=== PATIENT | male | born 1985 | race Caucasian/White ===

== ENCOUNTER 2019-07-17 15:49 | Emergency (ER) | payer SELFPAY ==
[2019-07-17 17:05] VITALS: BP 150/96; PULSE 100; RESP 18; TEMP 36.6; O2SAT 97; BMI 27.2
--- NOTE | 2019-07-17 17:12 | PC.NURSE ---
Ice pack given to pt for face pain
== END 2019-07-17 18:58 | disposition left against medical advice (07) ==
PROVIDERS: Emergency Provider Nurse Practitioner Family; Family Provider Nurse Practitioner; PCP Nurse Practitioner
DX: Z53.21 Procedure and treatment not carried out due to patient leaving prior to being seen by health care provider (principal)
CPT/HCPCS: 99281

== ENCOUNTER → 2019-10-02 08:50 | Outpatient (BNVA) | payer BC, SELFPAY | PROVIDERS: Family Provider Nurse Practitioner; PCP Nurse Practitioner; Visit Provider Psychiatry & Neurology Psychiatry | DX: F33.2 Major depressive disorder, recurrent severe without psychotic features (principal); F10.20 Alcohol dependence, uncomplicated | CPT/HCPCS: 99213 ==

== ENCOUNTER 2019-12-17 12:38 | Emergency (ER) | payer SELFPAY ==
[2019-12-17 12:42] VITALS: BP 161/103; PULSE 77; RESP 18; TEMP 37; O2SAT 97; BMI 27.5
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
[2019-12-17] MEDS: ketorolac 60 mg/2 mL INJ IM (13:30)
[2019-12-17 13:35] VITALS: BP 131/96; PULSE 82; RESP 18; O2SAT 97
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
--- NOTE | 2019-12-19 09:28 | DCPLANNER ---
Patient has a follow up appointment scheduled for Tuesday, December 24, 2019 at 10:[address] Mae. Clinic will call patient with appointment information.
--- NOTE | 2019-12-27 15:01 | DCPLANNER ---
Patient did not attend appointment scheduled for 12.24.19 with ortho.
== END 2019-12-17 13:35 | disposition home or self-care (01) ==
PROVIDERS: Emergency Provider Family Medicine; PCP Nurse Practitioner
DX: S43.402A Unspecified sprain of left shoulder joint, initial encounter (principal); X50.9XXA Other and unspecified overexertion or strenuous movements or postures, initial encounter; F17.210 Nicotine dependence, cigarettes, uncomplicated
CPT/HCPCS: 12345; 73030; 96372; 99281; 99283; J1885

== ENCOUNTER 2022-01-18 19:49 | Emergency (ER) | payer SELFPAY ==
[2022-01-18 19:49] VITALS: BMI 28.1
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
--- NOTE | 2022-01-18 19:56 | XRR_ITS ---
PROCEDURE INFORMATION: Exam: XR Chest Exam date and time: 01/18/2022 8:15 PM Age: 36 years old Clinical indication: Other: ETOH; Additional info: AMS TECHNIQUE: Imaging protocol: Radiologic exam of the chest. Views: 1 view. COMPARISON: CR Chest 1 [place] [id number] 06/01/2019 1:33 PM FINDINGS: Lungs: Unremarkable. No consolidation. Pleural spaces: Unremarkable. No pleural effusion. No pneumothorax. Heart/Mediastinum: Cardiomegaly. Bones/joints: Unremarkable. XR/XR chest 1V portable [id number] IMPRESSION: Cardiomegaly, lungs are clear
--- NOTE | 2022-01-18 20:00 | PC.NURSE ---
Dr Siddiqui made aware that pt had not been administered Narcan enroute. Nurse questioned need for narcan administration. No new orders received.
[2022-01-18 20:03] VITALS: BP 153/90; PULSE 107; RESP 17; TEMP 37.4; O2SAT 88
--- NOTE | 2022-01-18 20:07 | ECG_ITS ---
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 Measurements Intervals [place] Rate: 103 P: 52 WY: 147 QRS: 31 QRSD: 90 T: 37 QT: 319 QTc: 419 Interpretive Statements SINUS TACHYCARDIA ABNORMAL RHYTHM ECG Compared to ECG 06/01/2019 13:53:26 Sinus rhythm no longer present Electronically Signed On 01-18-2022 21:18:41 CDT by Woo Forbes M.D. [id number]
[2022-01-18] MEDS: sodium chloride 0.9% 1,000 ML 999 ML IV (20:15)
--- NOTE | 2022-01-18 20:15 | PC.NURSE ---
Pt placed on portable monitor for transport to CT. VO from Dr Sididqui to take the patient to room 10 for intubation prior to CT. Nurse requested narcan administration prior to intubation. No new orders for narcan given.
[2022-01-18 20:18] LABS: Add Urine Microscopic? NO; Charge for UA Resulting for Rev
[2022-01-18 20:20] LABS: Blood Urine Neg (Negative); Glucose Urine UA Norm (Normal); Ketones Urine Negative (Negative); Protein Urine Neg (Negative); Specific Gravity, Urine 1.015 (1.005-1.030); Urine Appearance Clear (CLEAR); Urine Color Yellow (Yellow); pH Urine 6 (5-7)
[2022-01-18 20:21] LABS: Bilirubin Urine Neg (Negative); Leukocyte Esterase Urine Negative (Negative); Nitrate Urine Negative (Negative); Urobilinogen Urine Norm (Negative)
[2022-01-18 20:22] VITALS: BP 121/53; PULSE 103; RESP 17; O2SAT 96
[2022-01-18 20:22] LABS: Basophils % 0.6 %; Eosinophils # 0.2 10^3/uL (0.0-0.8); Eosinophils % 3.5 %; Hematocrit 48.6 % (42.0-52.0); Hemoglobin 15.8 g/dL (11.7-16.6); Mean Corpuscular HGB Conc 32.5 g/dL (30.0-36.0); Mean Corpuscular Hemoglobin 28.4 pg (28.0-34.0); Mean Corpuscular Volume 87.4 fl (80-94); Mean Platelet Volume 8.8 fL (7.4-10.4); Monocytes # 0.4 10^3/uL (0.2-0.9); Monocytes % 6.6 %; Neutrophils # 3.76 10^3/uL (1.8-7.7); Neutrophils % 57.7 %; Nucleated Red Blood Cells % 0 %; Platelet Count 294 10^3/cmm (130-400); Red Blood Count 5.56 10^6/uL (4.1-5.3); Red Cell Distribution Width 13.3 % (12.1-15.1); White Blood Count 6.5 10^3/uL (4.0-10.0)
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
[2022-01-18] MEDS: naloxone 0.4 mg/ml SDV (20:25)
--- NOTE | 2022-01-18 20:25 | PC.NURSE ---
Arrived to room with RN x 3, RT, Dr. Siddiqui. Pt is responsive to sternal rub. Nasal trumpet to left nare per Dr. Siddiqui. VSS. Request to intubate by MD. Began setting up while special agent in charge requested Narcan prior to intubation. 0.4 of mg Narcan given. At approx 2026 pt began to gag. Pt was sat up in bed, mouth suctioned. Approx 2029, pt was awake with a GCS of 15. Answering questions appropriately. Pt to CT accompanied by RN x 2. Remained cooperative. On return to room, wen was dc'd at pt request. Family at bedside.
[2022-01-18 20:30] LABS: Amphetamines Screen Urine Negative (Negative); Barbiturates Screen Urine Negative (Negative); Benzodiazepines Screen Urine Negative (Negative); Cocaine Screen Urine Negative (Negative); Opiate Screen Urine Negative (Negative); PCP Screen Urine Negative (Negative); THC Screen Urine Negative (Negative)
[2022-01-18 20:50] LABS: Troponin(5th) Baseline 7 ng/L (0-15)
[2022-01-18 20:55] LABS: Alanine Aminotransferase 23 U/L (0-41); Albumin Level 4.5 g/dL (3.5-5.2); Alcohol Level 185 mg/dL (0-10); Alkaline Phosphatase 72 IU/L (40-130); Anion Gap 16.1 (5-19); Aspartate Amino Transferase 22 U/L (0-40); Blood Urea Nitrogen 11 mg/dL (6-20); Carbon Dioxide 25 mmol/L (22-29); Chloride 111 mmol/L (98-107); Globulin 2.3 g/dL (1.3-4.6); Glomerular Filtration Rate 62.8 mL/min (90-130); Glucose 102 mg/dL (65-115); Lipase 27 U/L (13-60); Osmolality Calculated 306 mOsm/kg (285-295); Potassium 4.1 mmol/L (3.5-5.1); Sodium 148 mmol/L (136-145); Total Bilirubin 0.2 mg/dL (0.15-1.2); Total Protein 6.8 g/dL (6.6-8.7)
[2022-01-18 21:02] LABS: Acetaminophen < 5.0 ug/mL (10-30); Salicylate < 0.3 mg/dL (3-10)
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
--- NOTE | 2022-01-18 21:56 | ECG_ITS ---
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 Measurements Intervals [place] Rate: 106 P: 58 RI: 147 QRS: 48 QRSD: 89 T: 43 QT: 320 QTc: 426 Interpretive Statements SINUS TACHYCARDIA ABNORMAL RHYTHM ECG Compared to ECG 01/18/2022 20:07:00 No significant changes Electronically Signed On 01-19-2022 19:51:37 CDT by Marina Harris M.D. [id number] f
== END 2022-01-18 21:58 | disposition home or self-care (01) ==
PROVIDERS: Emergency Provider Emergency Medicine
DX: R41.82 Altered mental status, unspecified (principal); F10.129 Alcohol abuse with intoxication, unspecified; Y90.6 Blood alcohol level of 120-199 mg/100 ml; F17.210 Nicotine dependence, cigarettes, uncomplicated
CPT/HCPCS: 51702; 70450; 71045; 72125; 80053; 80306; 80307; 81003; 83690; 84439; 84443; 84484; 85025; 93005; 96361; 96374; 99285; J2310; J7030

== ENCOUNTER 2022-03-19 16:09 | Emergency (ER) | payer MEDICAID, SELFPAY ==
[2022-03-19 16:17] VITALS: BP 140/86; PULSE 90; RESP 18; TEMP 36.2; O2SAT 97
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
[2022-03-19 18:22] VITALS: BP 147/93; PULSE 73; RESP 15; TEMP 36.7; O2SAT 98
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
== END 2022-03-19 18:25 | disposition home or self-care (01) ==
PROVIDERS: Emergency Provider Nurse Practitioner Family
DX: S93.401A Sprain of unspecified ligament of right ankle, initial encounter (principal); B99.9 Unspecified infectious disease; S90.31XA Contusion of right foot, initial encounter; F17.210 Nicotine dependence, cigarettes, uncomplicated; V86.99XA Unspecified occupant of other special all-terrain or other off-road motor vehicle injured in nontraffic accident, initial encounter
CPT/HCPCS: 73610; 73630; 99283; E0114

== ENCOUNTER 2023-01-13 06:11 | Emergency (ER) | payer BC, MEDICAID, SELFPAY ==
[2023-01-13 06:31] VITALS: BP 145/95; PULSE 66; RESP 20; TEMP 36.6; O2SAT 97; BMI 28.7
--- NOTE | 2023-01-13 06:46 | W.ED.BACK ---
HPI - Back Pain/Injury General: Chief Complaint: Back Pain/Injury Stated Complaint: upper back pain Time Seen by Provider: 01/13/23 06:14 Source: patient Mode of arrival: ambulatory History of Present Illness: 37-year-old male presents emergency room with complaints of upper back pain. He was doing some north work and heavy lifting feels like he hurt his upper back. MD elicited complaint: back pain Onset (ago): day(s) (2) Timing: constant Severity: moderate Similar Symptoms Previously: Yes Quality: sharp Location: thoracic spine (left) Radiation: none Exacerbating factors: immobilization Relieving factors: immobilization Context: while lifting and turning/twisting Associated symptoms: Deny abdominal pain, arthralgias, chills, difficulty walking, dysuria, fever(s), hematuria, myalgias, nausea, numbness, syncope, tingling/numbness/burning, urinary frequency, urinary urgency, vomiting or weakness Work related injury: Yes Review of Systems Const: Denies: fever(s) or chills Card: Denies: chest pain or syncope Resp: Denies: dyspnea, productive cough or non-productive cough GI: Denies: abdominal pain, nausea or vomiting : Denies: dysuria, urinary frequency, urinary urgency or hematuria Musc: Reports: back pain; Denies: extremity pain Skin/Breast: Denies: rash or pruritus Neuro: Denies: difficulty walking PFSH ED PFSH: Medical History Alcohol dependence Social History Smoking and tobacco status: current every day smoker cigarettes Packs smoked per day: 2 Years cigarettes smoked: 20 Quit status (tobacco): not considering quitting Second hand smoke exposure: Yes Physical Exam Const: COMMON NORMALS: no acute distress GENERAL APPEARANCE: cooperative and comfortable ORIENTATION/CONSCIOUSNESS: Yes awake, Yes oriented to person, Yes oriented to place and Yes oriented to time HENMT: COMMON NORMALS: normocephalic, atraumatic and hearing grossly normal bilaterally HEAD & SCALP: normocephalic and atraumatic Resp: COMMON NORMALS: normal respiratory effort, No retractions, No use of accessory muscles and clear to auscultation bilaterally AUSCULTATION: clear to auscultation bilaterally Cardio: COMMON NORMALS: regular rate, regular rhythm and No murmurs present (Cardio) RATE: regular rate RHYTHM: regular rhythm Back/Pelvis: OTHER: Point tenderness along the medial aspect of the left scapula in the region of the rhomboid. Extremity: COMMON NORMALS: normal to inspection, capillary refill normal, no clubbing, cyanosis or edema, no calf tenderness and no pedal edema Neuro: SENSORIUM/ORIENTATION: Yes oriented to person, Yes oriented to place and Yes oriented to time Skin: COMMON NORMALS: no rashes or lesions noted GENERAL SKIN EXAM: no rashes or lesions noted Course Vital Signs: Vital signs: Vital Signs Temperature 98 F 01/13/23 06:31 Pulse Rate 66 01/13/23 06:31 Respiratory Rate 20 H 01/13/23 06:31 Blood Pressure 145/95 01/13/23 06:31 Pulse Oximetry 97 01/13/23 06:31 MDM - Back Pain/Injury Medical Decision Making Nontraumatic back pain. Diclofenac and tizanidine to use as needed follow-up with primary care if not improving Medical Records I reviewed the patient's medical records. Labs 01/13/23 06:39 01/13/23 06:39 Laboratory Results WBC 7.4 10^3/uL (4.0-10.0) 01/13/23 06:39 RBC 5.45 10^6/uL (4.1-5.3) H 01/13/23 06:39 Hgb 15.2 g/dL (11.7-16.6) 01/13/23 06:39 Hct 47.7 % (42.0-52.0) 01/13/23 06:39 MCV 87.5 fl (80-94) 01/13/23 06:39 MCH 27.9 pg (28.0-34.0) L 01/13/23 06:39 MCHC 31.9 g/dL (30.0-36.0) 01/13/23 06:39 RDW 12.5 % (12.1-15.1) 01/13/23 06:39 Plt Count 208 10^3/cmm (130-400) 01/13/23 06:39 MPV 8.7 fL (7.4-10.4) 01/13/23 06:39 Neut % (Auto) 53.5 % 01/13/23 06:39 Lymph % (Auto) 32.3 % 01/13/23 06:39 [place] % (Auto) 9.4 % 01/13/23 06:39 Eos % (Auto) 4.2 % 01/13/23 06:39 Baso % (Auto) 0.5 % 01/13/23 06:39 Neut # (Auto) 3.96 10^3/uL (1.8-7.7) 01/13/23 06:39 Lymph # (Auto) 2.4 10^3/uL (0.8-4.8) 01/13/23 06:39 [place] # (Auto) 0.7 10^3/uL (0.2-0.9) 01/13/23 06:39 Eos # (Auto) 0.3 10^3/uL (0.0-0.8) 01/13/23 06:39 Baso # (Auto) 0.0 10^3/uL (0.0-0.1) 01/13/23 06:39 Nucleated RBC % (auto) 0 % 01/13/23 06:39 Nucleated RBCs # 0.0 /100WBC 01/13/23 06:39 Discharge Plan Discharge Patient Disposition: Home Clinical Impression: Upper back pain on left side Condition: Stable Prescriptions: New tizanidine 4 mg tablet 4 mg PO Q6H PRN (Reason: muscle spasticity) Qty: 15 0RF Rx Instructions: do not exceed 3 doses per 24 hrs diclofenac sodium 75 mg tablet,delayed release (DR/EC) 75 mg PO Q12H PRN (Reason: pain) Qty: 20 0RF Discontinued cyclobenzaprine 10 mg tablet 10 mg PO BEDTIME PRN (Reason: muscle spasm) Qty: 7 0RF Discharge Orders: Discharge ED (Routine); Ordered 01/13/23 Ordered By: Nas Clark Discharge Diet: Usual diet Discharge Activity: Increase activity as tolerated Patient Instructions: Back Pain (ED), Opioid Safety, Pain Management Coding Level of Care Code ED Ward Service Supervisor for Jessica Luke
[2023-01-13 06:48] LABS: Basophils % 0.5 %; Eosinophils # 0.3 10^3/uL (0.0-0.8); Eosinophils % 4.2 %; Hematocrit 47.7 % (42.0-52.0); Hemoglobin 15.2 g/dL (11.7-16.6); Lymphocytes # 2.4 10^3/uL (0.8-4.8); Lymphocytes % 32.3 %; Mean Corpuscular HGB Conc 31.9 g/dL (30.0-36.0); Mean Corpuscular Hemoglobin 27.9 pg (28.0-34.0); Mean Corpuscular Volume 87.5 fl (80-94); Mean Platelet Volume 8.7 fL (7.4-10.4); Monocytes # 0.7 10^3/uL (0.2-0.9); Monocytes % 9.4 %; Neutrophils # 3.96 10^3/uL (1.8-7.7); Neutrophils % 53.5 %; Nucleated Red Blood Cells % 0 %; Platelet Count 208 10^3/cmm (130-400); Red Blood Count 5.45 10^6/uL (4.1-5.3); Red Cell Distribution Width 12.5 % (12.1-15.1); White Blood Count 7.4 10^3/uL (4.0-10.0)
[2023-01-13 07:10] VITALS: BP 139/81; PULSE 64; RESP 18; O2SAT 96
[2023-01-13 07:11] VITALS: BP 139/81; PULSE 64; RESP 18; O2SAT 96
== END 2023-01-13 07:12 | disposition home or self-care (01) ==
PROVIDERS: Emergency Provider Family Medicine
DX: M54.6 Pain in thoracic spine (principal); F17.210 Nicotine dependence, cigarettes, uncomplicated
CPT/HCPCS: 36415; 85025; 99283

== ENCOUNTER → 2023-03-10 10:58 | Outpatient (BNVA) | payer BC, MEDICAID, SELFPAY | PROVIDERS: Referring Provider Dermatology; Visit Provider Physician Assistant | DX: M25.421 Effusion, right elbow (principal); M70.21 Olecranon bursitis, right elbow | CPT/HCPCS: 73080 ==

== ENCOUNTER 2024-06-29 10:40 | Emergency (ER) | payer BC, MEDICAID, SELFPAY ==
[2024-06-29 10:49] VITALS: BP 151/98; PULSE 84; RESP 16; TEMP 36.4; O2SAT 100; BMI 27.2
--- NOTE | 2024-06-29 11:14 | ED_ITS ---
HPI - General Adult 2 General: Chief complaint: General Medical Stated complaint: High BP Time Seen by Provider: 06/29/24 11:06 History of Present Illness: 39-year-old male presents to the emergen cy room with complaints of elevated blood pressure. 6 days ago he evidently inadvertently took several of his medicines he felt his blood pressure got too low so he stopped taking his medications and he is not restarted this morning he was not feeling well. He checked his blood pressure and said it was up into the 220s systolic. He has not had any chest pain he was little dizzy earlier most of his symptoms have resolved on arrival here his blood pressure is near normal with blood pressures in the 07/18 and 06/24/1939 systolic range Associated symptoms: Deny chest pain, dyspnea or rash Related Data Home Medications Medication Instructions Recorded Confirmed No Known Home Medications 03/10/23 Allergies Allergy/AdvReac Type Severity Reaction Status Date / Time No Known Allergies Allergy Verified 06/26/24 08:26 Review of Systems 2 Const: Denies: fever(s) or chills Card: Denies: chest pain Resp: Denies: dyspnea GI: Denies: abdominal pain : Denies: dysuria, urinary frequency or urinary urgency Musc: Denies: neck pain or back pain Skin/Breast: Denies: rash PFSH ED 2 PFSH: Medical History Psychiatric care Alcohol dependence Social History Smoking and tobacco/nicotine status: current every day tobacco/nicotine user cigarettes Packs smoked per day: 2 Years cigarettes smoked: 20 Quit status (tobacco/nicotine): not considering quitting Second hand smoke exposure: Yes Physical Exam 2 Const: COMMON NORMALS: no acute distress GENERAL APPEARANCE: cooperative and comfortable ORIENTATION/CONSCIOUSNESS: Yes awake, Yes oriented to person, Yes oriented to place and Yes oriented to time HENMT: COMMON NORMALS: normocephalic, atraumatic and hearing grossly normal bilaterally HEAD & SCALP: normocephalic and atraumatic Resp: COMMON NORMALS: normal respiratory effort, No retractions, No use of accessory muscles and clear to auscultation bilaterally AUSCULTATION: clear to auscultation bilaterally Cardio: COMMON NORMALS: regular rate, regular rhythm and No murmurs present (Cardio) RATE: regular rate RHYTHM: regular rhythm GI: COMMON NORMALS: Soft to palpation and No hepatosplenomegaly present A USCULTATION: Yes normoactive bowel sounds PALPATION: Yes Soft to palpation, No Tenderness to palpation present (GI), No Guarding due to palpation present (GI) and Yes No hepatosplenomegaly present Extremity: COMMON NORMALS: normal to inspection, capillary refill normal, no clubbing, cyanosis or edema, no calf tenderness and no pedal edema Neuro: SENSORIUM/ORIENTATION: Yes oriented to person, Yes oriented to place and Yes oriented to time OTHER: No focal neurologic deficits noted Skin: COMMON NORMALS: no rashes or lesions noted GENERAL SKIN EXAM: no rashes or lesions noted Course 2 Vital Signs: Vital signs: Vital Signs Temperature 97.6 F 06/29/24 10:49 Pulse Rate 76 06/29/24 12:14 Respiratory Rate 16 06/29/24 10:49 Blood Pressure 147/95 06/29/24 12:14 Pulse Oximetry 97 06/29/24 12:14 Oxygen Delivery Me thod Room Air 06/29/24 10:49 MDM - General Adult Medical Decision Making Labs are unremarkable EKG no acute changes reviewed as found on the chart. Will discharge patient home have him resume his regular medications as prescribed. No increase in blood pressure medications needed Lab Data 06/29/24 11:19 06/29/24 11:19 Laboratory Results WBC 6.15 10^3/uL (3.29-11.43) 06/29/24 11:19 RBC 5.93 10^6/uL (3.85-5.65) H 06/29/24 11:19 Hgb 16.90 g/dL (11.27-16.99) 06/29/24 11:19 Hct 52.0 % (37-53) 06/29/24 11:19 MCV 87.7 fl (82-101) 06/29/24 11:19 MCH 28.5 pg (27-33) 06/29/24 11:19 MCHC 32.5 g/dL (30-55) 06/29/24 11:19 RDW 13.0 % (12.1-15.1) 06/29/24 11:19 Plt Count 262 10^3/cmm (157-399) 06/29/24 11:19 MPV 8.3 fL (7.4-10.4) 06/29/24 11:19 Neut % (Auto) 60.6 % 06/29/24 11:19 Lymph % (Auto) 27.3 % 06/29/24 11:19 [place] % (Auto) 8.3 % 06/29/24 11:19 Eos % (Auto) 2.8 % 06/29/24 11:19 Baso % (Auto) 0.5 % 06/29/24 11:19 Neut # (Auto) 3.73 10^3/uL (1.8-7.7) 06/29/24 11:19 Lymph # (Auto) 1.7 10^3/uL (0.8-4.8) 06/29/24 11:19 [place] # (Auto) 0.5 10^3/uL (0.2-0.9) 06/29/24 11:19 Eos # (Auto) 0.2 10^3/uL (0.0-0.8) 06/29/24 11:19 Baso # (Auto) 0.0 10^3/uL (0.0-0.1) 06/29/24 11:19 Nucleated RBC % (auto) 0 % 06/29/24 11:19 Nucleated RBCs # 0.0 /100WBC 06/29/24 11:19 Sodium 140 mmol/L (136-145) 06/29/24 11:19 Potassium 4.2 mmol/L (3.5-5.1) 06/29/24 11:19 Chloride 102 mmol/L (98-107) 06/29/24 11:19 Carbon Dioxide 24 mmol/L (22-29) 06/29/24 11:19 Anion Gap 18.2 (5-19) 06/29/24 11:19 BUN 10 mg/dL (6-20) 06/29/24 11:19 Creatinine 1.0 mg/dL (0.7-1.2) 06/29/24 11:19 GFR Calculation 83.6 mL/min (90-130) L 06/29/24 11:19 Glucose 100 mg/dL (65-115) 06/29/24 11:19 Calculated Osmolality 289 mOsm/kg (285-295) 06/29/24 11:19 Calcium 9.3 mg/dL (8.5-10.5) 06/29/24 11:19 Total Bilirubin 0.3 mg/dL (0.15-1.2) 06/29/24 11:19 AST 18 U/L (0-40) 06/29/24 11:19 ALT 23 U/L (0-41) 06/29/24 11:19 Alkaline Phosphatase 81 U/L (40-130) 06/29/24 11:19 Total Protein 6.8 g/dL (6.6-8.7) 06/29/24 11:19 Albumin 4.3 g/dL (3.5-5.2) 06/29/24 11:19 Globulin 2.5 g/dL (1.3-4.6) 06/29/24 11:19 No radiology studies performed this visit Discharge Plan Discharge Patient Disposition: Home Clinical Impression: HTN (hypertension) Condition: Stable Prescriptions: No Action No Known Home Medications Discharge Orders: Discharge ED (Routine); Ordered 06/29/24 Ordered By: Nas Clark Discharge Diet: Usual diet Discharge Activity: Increase activity as tolerated Patient Instructions: Opioid Safety, Pain Management Activity Restrictions/Additional Instructions: Thank you for choosing [facility] for your healthcare needs today. It is very important that you follow up as instructed or that you return to the Emergency Department should you have concerns or if your condition changes or worsens in any way. You were seen in the emergency room with complaints of elevated blood pressure. Your blood pressure is stable when you received in the emergency room would recommend you continue your previously prescribed medications with no changes follow-up your primary care doctor next week Coding Level of Care Code ED Transitional Care Nurse for Jessica Luke
--- NOTE | 2024-06-29 11:22 | ECG_ITS ---
[facility] Test Date: 2024-06-29 Pat Name: Shahzad Bergeron Department: Room: Gender: Male Claim Adjuster: : 1985 Requested By: Nas López Order Number: [id number] Reading MD: SINCERE LARA Measurements Intervals [place] Rate: 64 P: 39 SD: 153 QRS: 28 QRSD: 92 T: 40 QT: 366 QTc: 379 Interpretive Statements SINUS RHYTHM Compared to ECG 01/18/2022 20:08:43 Sinus tachycardia no longer present Electronically Signed On 06-29-2024 18:38:38 WILDLAND FI[employer] FIGHTER SPECIALIST by SINCERE LARA [id number]
[2024-06-29 11:26] VITALS: BP 138/91
[2024-06-29 11:28] LABS: Basophils % 0.5 %; Eosinophils # 0.2 10^3/uL (0.0-0.8); Eosinophils % 2.8 %; Lymphocytes # 1.7 10^3/uL (0.8-4.8); Lymphocytes % 27.3 %; Mean Corpuscular HGB Conc 32.5 g/dL (30-55); Mean Corpuscular Hemoglobin 28.5 pg (27-33); Mean Corpuscular Volume 87.7 fl (82-101); Mean Platelet Volume 8.3 fL (7.4-10.4); Monocytes # 0.5 10^3/uL (0.2-0.9); Monocytes % 8.3 %; Neutrophils # 3.73 10^3/uL (1.8-7.7); Neutrophils % 60.6 %; Nucleated Red Blood Cells % 0 %; Platelet Count 262 10^3/cmm (157-399); Red Blood Count 5.93 10^6/uL (3.85-5.65); White Blood Count 6.15 10^3/uL (3.29-11.43)
[2024-06-29 11:43] LABS: Alanine Aminotransferase 23 U/L (0-41); Albumin Level 4.3 g/dL (3.5-5.2); Alkaline Phosphatase 81 U/L (40-130); Anion Gap 18.2 (5-19); Aspartate Amino Transferase 18 U/L (0-40); Blood Urea Nitrogen 10 mg/dL (6-20); Calcium 9.3 mg/dL (8.5-10.5); Carbon Dioxide 24 mmol/L (22-29); Chloride 102 mmol/L (98-107); Globulin 2.5 g/dL (1.3-4.6); Glomerular Filtration Rate 83.6 mL/min (90-130); Glucose 100 mg/dL (65-115); Osmolality Calculated 289 mOsm/kg (285-295); Potassium 4.2 mmol/L (3.5-5.1); Sodium 140 mmol/L (136-145); Total Bilirubin 0.3 mg/dL (0.15-1.2); Total Protein 6.8 g/dL (6.6-8.7)
[2024-06-29 12:14] VITALS: BP 147/95; PULSE 76; O2SAT 97
== END 2024-06-29 12:18 | disposition home or self-care (01) ==
PROVIDERS: Emergency Provider Family Medicine
DX: I10 Essential (primary) hypertension (principal); F17.210 Nicotine dependence, cigarettes, uncomplicated
CPT/HCPCS: 80053; 85025; 93005; 99284

== ENCOUNTER → 2024-07-10 10:18 | Outpatient (BNVA) | payer OTHER, SELFPAY | PROVIDERS: Visit Provider Psychiatry & Neurology Psychiatry | DX: F33.2 Major depressive disorder, recurrent severe without psychotic features (principal); F10.20 Alcohol dependence, uncomplicated | CPT/HCPCS: 80061; 83036 ==

== ENCOUNTER 2024-10-17 18:40 | Emergency (ER) | payer MEDICAID, SELFPAY ==
[2024-07-12 11:23] VITALS: BP 133/82; BMI 28.5
[2024-10-17 18:46] VITALS: BP 142/89; PULSE 101; RESP 18; TEMP 36.7; O2SAT 97; BMI 25.8
--- NOTE | 2024-10-17 19:17 | ED_ITS ---
HPI - Dental/Oral General: Chief complaint: Dental/Oral Stated complaint: absess, dental pain into left eye Time Seen by Provider: 10/17/24 19:10 History of Present Illness: 39-year-old man with history of poor den tition who presents to the emergency room with dental pain. He has a partial and then a couple of teeth in his upper left front molar area. He has swelling and redness around this with some pain. He has not taken anything yet. Has not been to see the dentist yet. Related Data Previous Rx's ?Medication ?Instructions ?Recorded bupropion HCl 300 mg 24 hr tablet, 300 mg PO QAM #30 t abs 07/26/24 extended release (Wellbutrin XL) hydroxyzine HCl 25 mg tablet 25 mg PO BID PRN anxiety #60 tabs 07/26/24 lisinopril 20 mg tablet 20 mg PO .morning #30 tabs 0 07/26/24 naltrexone 50 mg tablet 50 mg PO DAILY #30 tabs 01/10 naltrexone microspheres 380 mg 380 mg IM .Q28 days #1 ea 07/26/24 intramuscular suspension,extended release (Vivitrol) amoxicillin 875 mg-potassium 1 tab PO BID 10 days #20 tabs 10/17/24 clavulanate 125 mg tablet diclofenac sodium 50 mg 50 mg PO BID PRN pain #14 ta bs 10/17/24 tablet,delayed release Allergies Allergy/AdvReac Type Severity Reaction Status Date / Time No Known Allergies Allergy Verified 07/26/24 09:33 Review of Systems Narrative: Constitutional symptoms: Negative except as documented in HPI. Skin symptoms: Negative except as documented in HPI. Eye symptoms: Negative except as documented in HPI. ENMT symptoms: Negative except as documented in HPI. Respiratory symptoms: Negative except as documented in HPI. Cardiovascular symptoms: Negative except as documented in HPI. Gastrointestinal symptoms: Negative except as documented in HPI. Genitourinary symptoms: Negative except as documented in HPI. Musculoskeletal symptoms: Negative except as documented in HPI. Neurologic symptoms: Negative except as documented in HPI. Psychiatric symptoms: Negative except as documented in HPI. Endocrine symptoms: Negative except as documented in HPI. [facility] ED PFSH: Medical History (Updated 10/17/24 @ 19:14 by Gabriella King MD) Methamphetamine dependence, episodic Cigarette nicotine dependence Marijuana dependence Generalized anxiety disorder with panic attacks Major depressive disorder, recurrent severe without psychotic features Alcohol use disorder, severe, dependence Psychiatric care Social History (Updated 07/10/24 @ 12:[address] LPN) Smoking and tobacco/nicotine status: current every day tobacco/nicotine user cigarettes Packs smoked per day: 2 Years cigarettes smoked: 20 Quit status (tobacco/nicotine): not considering quitting Second hand smoke exposure: Yes Alcohol intake: current Alcohol intake frequency: 0-2 Drinks per Day Alcohol type: beer Substance/Drug Use: current Other substance/drug use details: Meth about 3 weeks and weed is an everyday thing Adopted: No Caregiver/support person: No Lives independently: Yes Household members: none Housing: Apartment Marital status: Legally Number of children: 2 Number of grandchildren: 0 Highest education level completed: GED or Equivalent service: No Current occupational status: employed Current occupation: [employer] Current occupational exposures/hazards: No Pets and animals: Yes Pets & animals: dog(s) Leisure activites: hunting, fishing, reading and other Sexually active: Yes Do you think of yourself as: Straight/Heterosexual Current gender identity: Female Olivia/Zoroastrianism: None Special olivia needs: No Agree to transfusion: Yes Physical Exam Narrative: EXAM NARRATIVE: General: Alert, no acute distress. Skin: warm and dry Head: Normocephalic Neck: Trachea midline Eye: Extraocular movements are intact. Ears, nose, mouth and throat: Oral mucosa moist, swelling and redness around teeth in the front upper molar area on the left. Respiratory: Respirations are non-labored Musculoskeletal: Normal ROM Gastrointestinal: Abdomen does not appear distended Neurological: Alert and oriented, No focal neurological deficit observed. Psychiatric: Cooperative, appropriate mood & affect. Course Vital Signs: Vital signs: Vital Signs Temperature 98.1 F 10/17/24 18:46 Pulse Rate 101 H 10/17/24 18:46 Respiratory Rate 18 10/17/24 18:46 Blood Pressure 142/89 10/17/24 18:46 Pulse Oximetry 97 10/17/24 18:46 Oxygen Delivery Me thod Room Air 10/17/24 18:46 MDM - Dental/Oral Medical Decision Making Assessment and plan: Dental infection ?IM Toradol and first dose of Augmentin here in the emergency room. - Discharged home - Discussed plan with patient. Answered any questions. - Evaluation and treatment of this problem were appropriate in the emergency setting. No radiology studies performed this visit Discharge Plan Discharge Patient Disposition: Home Clinical Impression: Dental abscess Condition: Stable Prescriptions: New diclofenac sodium 50 mg tablet,delayed release (DR/EC) 50 mg PO BID PRN (Reason: pain) Qty: 14 0RF amoxicillin-pot clavulanate 875-125 mg tablet 1 tab PO BID 10 Days Qty: 20 0RF No Action bupropion HCl [Wellbutrin XL] 300 mg tablet extended release 24 hr 300 mg PO QAM Qty: 30 3RF Rx Instructions: Take one tablet every morning naltrexone 50 mg tablet 50 mg PO DAILY Qty: 30 3RF Rx Instructions: Take one tablet daily hydroxyzine HCl 25 mg tablet 25 mg PO BID PRN (Reason: anxiety) Qty: 60 3RF Rx Instructions: Take one tablet twice per day as needed for anxiety lisinopril 20 mg tablet 20 mg PO .morning Qty: 30 3RF Rx Instructions: Take one tablet every morning Vivitrol 380 mg suspension,extended rel recon 380 mg IM .Q28 days Qty: 1 6RF Rx Instructions: Injection every 30 days Discharge Orders: Discharge ED (Routine); Ordered 10/17/24 Ordered By: Gabriella King Discharge Diet: Advance as tolerated Discharge Activity: Increase activity as tolerated Patient Instructions: Dental Abscess (ED), Opioid Safety, Pain Management Activity Restrictions/Additional Instructions: Thank you for choosing [facility] for your healthcare needs today. You have been screened and evaluated and felt safe for discharge. Health conditions do change or evolve sometimes and as such it is important that you follow up with your Primary Doctor to be re checked, 3-5 days is a general good time frame for follow up. You are always welcome to return to the ED for re assessment if your symptoms are worsening or you have new concerns Print Language: Ug[place]an Coding Level of Care Code ED Configuration Consultant for Jessica Luke
[2024-10-17 19:20] VITALS: BP 136/101; PULSE 97; RESP 16; O2SAT 94
[2024-10-17] MEDS: amoxicillin-clav 875-125 mg Tablet 1 TAB PO (19:20)
[2024-10-17] MEDS: ketorolac 60 mg/2 mL INJ IM (19:20)
[2024-10-17 19:48] VITALS: BP 149/92; PULSE 99; RESP 16; O2SAT 96
== END 2024-10-17 19:51 | disposition home or self-care (01) ==
PROVIDERS: Emergency Provider Emergency Medicine
DX: K04.7 Periapical abscess without sinus (principal); F17.210 Nicotine dependence, cigarettes, uncomplicated
CPT/HCPCS: 96372; 99284; J1885; J9999